=== PATIENT | female | born 1980 | race Hispanic/Latino ===

== ENCOUNTER 2019-09-12 18:46 | Inpatient (IN) ==
[2019-09-12] MEDS ORDERED: LR 1,000 ML IV ONE (19:19)
[2019-09-12] MEDS ORDERED: REGLAN PO ONE (19:19)
[2019-09-12] MEDS ORDERED: PEPCID IV PRN (19:19)
[2019-09-12] MEDS ORDERED: PEPCID PO ONE (19:19)
[2019-09-12] MEDS ORDERED: PEPCID PO PRN (19:19)
[2019-09-12] MEDS ORDERED: STADOL IV PRN ×2 (19:19)
[2019-09-12] MEDS ORDERED: AMBIEN PO PRN (19:19)
[2019-09-12] MEDS ORDERED: KEFZOL 1 GM/D5W 1 GM/50 ML IVPB IV PRN (19:19)
[2019-09-12] MEDS ORDERED: BRETHINE SUBQ PRN (19:19)
[2019-09-12] MEDS ORDERED: TYLENOL PO PRN (19:19)
[2019-09-12] MEDS ORDERED: ZOFRAN IV PRN (19:19)
[2019-09-12 20:04] LABS: BASO# 0.05 X1000 (0.0-0.2); BASO% 0.5 % (0.0-0.8); EOS# 0.18 X1000 (0.0-0.7); EOS% 1.8 % (0.0-10.0); HEMATOCRIT 32.1 % (37.0-47.0); HEMOGLOBIN 10.2 g/dL (12.0-16.0); IMM GRAN# 0.18 X1000 (0.0-0.04); IMM GRAN% 1.8 % (0.0-0.5); LYMPH# 2.66 X1000 (1.2-3.4); LYMPH% 26.8 % (20.5-51.1); MCH 28.4 PG (27-31); MCHC 31.8 g/dL (33-37); MCV 89.4 FL (81-99); MONO# 0.49 X1000 (0.11-0.59); MONO% 4.9 % (1.7-9.3); MPV 12.1 FL (7.4-10.4); NEUT# 6.35 X1000 (1.4-6.5); NEUT% 64.2 % (42.2-75.2); PLT 179 X1000 (130-400); RBC 3.59 XMIL (4.2-5.4); RDW 15.2 % (11.5-14.5); WBC 9.91 X1000 (4.8-10.8)
[2019-09-12] MEDS: CYTOTEC PO SCH (20:21)
[2019-09-12] MEDS: STADOL IV PRN (21:14)
--- NOTE | 2019-09-12 21:59 | HISTORY AND PHYSICAL ---
HISTORY OF PRESENT ILLNESS: A 38-year-old G 5, P 4-0-0-5, admitted at 40 weeks and 2 days, [place] 09/10/2019, patient of Dr. Hogue, for an elective induction of labor. The patient has a history significant for advanced maternal age and grand multiparity. The patient denied of any complaints. She does report of irregular contractions. She denies any leakage of fluid or vaginal bleeding. The patient feels the baby move. The patient reports her has been unremarkable. PAST MEDICAL HISTORY: Denied of any past medical conditions. PAST SURGICAL HISTORY: Denied. OBSTETRICAL HISTORY: Spontaneous vaginal delivery x5 with one of her pregnancies a twin . The patient reports her largest baby weighed approximately 9 pounds 8 ounces. The patient denied any prior operative deliveries, blood transfusion, severe lacerations or other complications during her prior pregnancies. [employer] HISTORY: The patient denied STDs or HIV. The patient denied any abnormal Paps. Her last Pap was in 2018, reported normal. MEDICATIONS: vitamins. ALLERGIES: Advil- itchiness and a rash. SOCIAL HISTORY: The patient denies any tobacco, alcohol, or illicit drug use. FAMILY HISTORY: Noncontributory. REVIEW OF SYSTEMS: Negative except as noted in HPI returning. OBJECTIVE: Vital signs within normal limitis General: In no apparent distress. Cardiovascular: Regular rate and rhythm. Pulmonary: Clear to auscultate bilaterally. Abdomen: Soft, nontender to palpation and gravid. EFW approximately 8.5 pounds by Wilson's. SVE: 1cm/ thick/ high Bedside ultrasound: cephalic presentation. heart tracings: 150s, moderate variability, accelerations present, no apparent decelerations. Tocometer: irritability. LABORATORY: labs; Rh positive, antibody negative. Urine drug screen negative. RPR nonreactive. Gonorrhea and chlamydia negative. Hepatitis B surface antigen nonreactive. Hepatitis C antibody nonreactive. HIV 1, 2 antibody screen nonreactive. Rubella immune. One hour glucosetolerance test: not done/not seen in records (patient reports did not do 1-hour GTT during this ). GBS negative. Urine culture negative. Serum screening not found in records. Hemoglobin 10.2, hematocrit 32.1, platelet 179,000. ASSESSMENT & PLAN: A 38-year-old G5, P 4-0-0-5 at 40 weeks and 2 days with: 1. Intrauterine - well-being: Category 1 tracings. -Plan for an elective induction of labor. Misoprostol initiated for cervical ripening -Risks and benefits of a vaginal delivery discussed in depth with the patient and her significant other, including, but not limited to, bleeding, infection, lacerations, risk of shoulder dystocia (and its complications, including but not limited to, brachial plexus injury, clavicular fracture, and ashypxia), need for operative delivery such as using vacuum and/or forceps (with risks of complications discussed in depth with the patient). Also discussed risk of possible delivery for maternal and/or indications such as nonreassuring heart tones or arrest of descent, which includes, but not limited to, bleeding, infection, possible injuries to other organs, postoperative pain, need for hysterectomy. Also discussed with the patient the risk of blood transfusion such as hepatitis C and/or HIV transmission. The patient agreed to blood transfusion if recommended. The patient expressed understanding. All questions answered. Stenciling Machine Tender line use; #[id number]. 2. Grand multiparity. -Patient at risk for hemorrhage. -Consider having uterotonic agents available at bedside at time of delivery. 3. Anemia. -The patient's hemoglobin upon admission was 10.2, hematocrit 32.1. 4. Advanced maternal age. -Serum screening and anatomy ultrasounds not seen in records. Dictated by Giuliano Robin MD for Thomas Hogue III, MD cc: Thomas Hogue III, MD MTD
[2019-09-12 22:40] LABS: UR AMPHETAMINES QUAL NONE DETECTED (NONE DETECT); UR BARBITUATES QUAL NONE DETECTED (NONE DETECT); UR BENZODIAZEPIN QUAL NONE DETECTED (NONE DETECT); UR CANNABINOIDS QUAL NONE DETECTED (NONE DETECT); UR COCAINE QUAL NONE DETECTED (NONE DETECT); UR METHADONE QUAL NONE DETECTED (NONE DETECT); UR OPIATES QUAL NONE DETECTED (NONE DETECT); UR OXYCODONE QUAL NONE DETECTED (NONE DETECT); UR PCP QUAL NONE DETECTED (NONE DETECT)
[2019-09-12 23:03] LABS: URINE SOURCE VOIDED
[2019-09-12 23:19] LABS: BILIRUBIN URINE NEGATIVE (NEGATIVE); BLOOD URINE SMALL (NEGATIVE); COLOR STRAW; GLUCOSE URINE NEGATIVE (NEGATIVE); KETONE URINE NEGATIVE (NEGATIVE); LEUKOCYTES URINE LARGE (NEGATIVE); NITRITE URINE NEGATIVE (NEGATIVE); PROTEIN URINE NEGATIVE (NEGATIVE); SP GRAVITY URINE 1.004; TURBIDITY URINE HAZY (CLEAR); UROBILINOGEN URINE NORMAL (NORMAL)
[2019-09-13] MEDS: CYTOTEC PO SCH (00:16)
[2019-09-13] MEDS: STADOL IV PRN ×2 (00:20→04:53)
[2019-09-13] MEDS ORDERED: CYTOTEC PO ONE (04:38)
[2019-09-13] MEDS: LR 1,000 ML IV SCH ×2 (04:55→08:26)
[2019-09-13] MEDS ORDERED: HUMALOG SUBQ ONE (05:14)
[2019-09-13] MEDS ORDERED: PITOCIN 30 UNITS/NS 30 UNIT/500 ML IV.SOLN IV SCH ×2 (08:00→14:45)
[2019-09-13] MEDS ORDERED: NAROPIN 0.2% INJ ONE (08:45)
[2019-09-13] MEDS ORDERED: FENTANYL IV ONE (08:45)
[2019-09-13] MEDS ORDERED: FENTANYL-BUPIV-NS 500 MCG-0.125% 250 ML EPIDURAL SCH (09:00)
[2019-09-13] MEDS ORDERED: XYLOCAINE-MPF 1% INJ PRN ×2 (09:55→14:31)
[2019-09-13] MEDS ORDERED: MINERAL OIL TOP PRN (09:55)
[2019-09-13] MEDS ORDERED: AMBIEN PO PRN (14:31)
[2019-09-13] MEDS ORDERED: M-M-R II VACCINE SUBQ ONE (14:31)
[2019-09-13] MEDS ORDERED: BENADRYL PO PRN (14:31)
[2019-09-13] MEDS ORDERED: PITOCIN IM PRN (14:31)
[2019-09-13] MEDS ORDERED: MINERAL OIL PO PRN (14:31)
[2019-09-13] MEDS ORDERED: CYTOTEC PO PRN (14:31)
[2019-09-13] MEDS ORDERED: HYDROXYZINE IM PRN (14:31)
[2019-09-13] MEDS ORDERED: ATARAX PO PRN (14:31)
[2019-09-13] MEDS ORDERED: BOOSTRIX VACCINE IM ONE (14:31)
[2019-09-13] MEDS ORDERED: MOTRIN PO PRN (14:31)
[2019-09-13] MEDS ORDERED: BENADRYL IV PRN (14:31)
[2019-09-13] MEDS ORDERED: NORCO-5 PO PRN (14:31)
[2019-09-13] MEDS ORDERED: PITOCIN 20 UNITS/NS 20 UNITS/1,000 ML IV.SOLN IV SCH (14:45)
--- NOTE | 2019-09-13 14:50 | OPERATIVE NOTE ---
PROCEDURE DATE: 09/13/2019 FINDINGS/DESCRIPTION OF PROCEDURE: The patient progressed to complete pushing had spontaneous vaginal delivery of a male infant, 8 pounds 7 ounces with Apgars of 8 and 10 at 1408 on 09/13/2019 over a first-degree vaginal laceration. Cord blood sample was obtained at this time. Placenta was then delivered intact with 3 vessel cord. First-degree vaginal laceration repaired with 3-0 chromic. ANESTHESIA: Epidural. Estimated blood loss 150 mL. COUNTS: All counts were correct x2. cc: Thomas Hogue III, MD MTDD
[2019-09-13] MEDS: NORCO-10 PO PRN ×2 (17:38→23:16)
[2019-09-13] MEDS: PERI MEDS (DERMOPLAST/NUPERCAINAL/TUCKS) MISC PRN (18:40)
[2019-09-13] MEDS: PERICOLACE PO SCH (21:18)
[2019-09-14] MEDS: NORCO-10 PO PRN ×3 (04:04→12:02)
[2019-09-14 04:57] LABS: BASO# 0.08 X1000 (0.0-0.2); BASO% 0.5 % (0.0-0.8); EOS# 0.19 X1000 (0.0-0.7); EOS% 1.1 % (0.0-10.0); HEMATOCRIT 30.5 % (37.0-47.0); HEMOGLOBIN 9.6 g/dL (12.0-16.0); IMM GRAN# 0.12 X1000 (0.0-0.04); IMM GRAN% 0.7 % (0.0-0.5); LYMPH# 3.68 X1000 (1.2-3.4); LYMPH% 21.5 % (20.5-51.1); MCH 28.5 PG (27-31); MCHC 31.5 g/dL (33-37); MCV 90.5 FL (81-99); MONO# 0.61 X1000 (0.11-0.59); MONO% 3.6 % (1.7-9.3); MPV 11.9 FL (7.4-10.4); NEUT# 12.42 X1000 (1.4-6.5); NEUT% 72.6 % (42.2-75.2); PLT 167 X1000 (130-400); RBC 3.37 XMIL (4.2-5.4); RDW 15.3 % (11.5-14.5)
[2019-09-14] MEDS: FERROUS SULFATE PO SCH (08:32)
[2019-09-14] MEDS: PERCOCET-10 PO PRN ×3 (16:05→23:31)
[2019-09-14] MEDS: PERICOLACE PO SCH (20:04)
[2019-09-15] MEDS: PERCOCET-10 PO PRN ×2 (05:29→08:31)
--- NOTE | 2019-09-15 06:07 | DISCHARGE SUMMARY ---
ADMISSION DATE: 09/12/2019 DISCHARGE DATE: HISTORY: This patient is a 38-year-old 5, para 5, admitted at 40 weeks and 2 days for induction on 09-12-2019. She does have a history of advanced maternal age and grand mal type. The patient had an uneventful . She had spontaneous vaginal deliveries x5 with one of her pregnancies being twins. Her largest baby weighed 9 pounds 8 ounces. The patient denied any previous complications. She has been taking vitamins. She denies any tobacco, alcohol, or drug use. Allergies: Motrin FAMILY HISTORY: Noncontributory REVIEW OF SYSTEMS: Unremarkable. HOSPITAL COURSE: The patient was admitted for induction. It must be noted her labs included she was Rh positive. RPR nonreactive. GC and Chlamydia negative. Hepatitis B and hepatitis C negative. HIV negative. Rubella was immune. Her hematocrit on admission was 32.1 with a normal platelet count. She delivered on 09/12 a male 8 pounds 7 ounces with Apgars of 8 and 10 at 14:08 on 09/12 over first-degree vaginal laceration that was repaired. The patient's course was totally unremarkable, and she remained well and afebrile. Postop hematocrit is 30.5. Her vital signs remain stable. She was afebrile with a blood pressure of 110/67. The patient will have follow up with her private doctor in approximately 4 to 6 weeks. She was discharged home on Percocet 5 and with precautions, about fever, abdominal pain or abnormal bleeding. She verbalized understanding and all questions answered. [facility]
[2019-09-15] MEDS: FERROUS SULFATE PO SCH (08:20)
[2019-09-15] MEDS: PERI MEDS (DERMOPLAST/NUPERCAINAL/TUCKS) MISC PRN (08:20)
[2019-09-15 08:31] VITALS: BP 129/81
== END 2019-09-15 09:52 | disposition home or self-care (01) | DRG 807 ==
LOC: LD 18:46
PROVIDERS: ADMIT Obstetrics & Gynecology Obstetrics; ATTEND Obstetrics & Gynecology